=== PATIENT | male | born 1990 | race Caucasian/White ===

== ENCOUNTER 2019-07-31 11:53 | Emergency (ER) | payer SELFPAY ==
[~2019-07-31] VITALS: Ht 177.8 cm; Wt 81.6 kg
[2019-07-31 12:17] VITALS: BP 154/83
--- NOTE | 2019-07-31 12:55 | PHYS DOC ---
Past Medical History Past Medical History: No Pertinent History (DINORA CRUZ APRN) Past Surgical History: No Surgical History (DINORA CRUZ APRN) Alcohol Use: None Drug Use: None (DINORA CRUZ APRN) Adult General Chief Complaint Chief Complaint: DENTAL PROBLEM [facility] HPI Patient is a 29 year old male who presents with toothache has been ongoing for 2 months. He states she's been ongoing [employer] [facility] dental school but does not want to that yet due to financial concerns. Denies fever, denies nausea, denies any other symptoms. Complete ROS were reviewed and found to be within normal limits, except as documented in the HPI (DINORA CRUZ APRN) Allergies Allergies Allergies Coded Allergies Type Severity Reaction Last Updated Verified No Known Drug Allergies 07/31/19 No (CARINA FLORES MD) Physical Exam Physical Exam Constitutional: Well developed, well nourished, no acute distress, non-toxic appearance. [] HENT: Normocephalic, atraumatic, bilateral external ears normal, oropharynx moist, no oral exudates, nose normal. Tooth # 13 has cavity. Eyes: PERRLA, EOMI, conjunctiva normal, no discharge. [] Neck: Normal range of motion, no tenderness, supple Neurologic: Alert and oriented X 3, normal motor function, normal sensory function, no focal deficits noted. [] Psychologic: Affect normal, judgement normal, mood normal. [] (DINORA CRUZ APRN) Current Patient Data Vital Signs Vital Signs Date Time Temp Pulse Resp B/P (MAP) Pulse Ox O2 Delivery O2 Flow Rate FiO2 07/31/19 12:17 97.7 94 16 154/83 (106) 98 Room Air 97.7 (CARINA FLORES MD) EKG EKG [] (DINORA CRUZ APRN) Radiology/Procedures Radiology/Procedures [] (DINORA CRUZ APRN) Course & Med Decision Making Course & Med Decision Making Pertinent Labs and Imaging studies reviewed. (See chart for details) Discussed with patient the need to follow up with Dentist. A medical screening exam was performed on this patient and the patient does not appear to be having a medical emergency. Her symptoms are not of sufficient severity and within reasonable medical probability it is unlikely the absence of immediate medical attention would result in placing the health of the individual (or, with respect to a woman, the health of the woman or her unborn child) in serious jeopardy, serious impairment to bodily functions, or serious dysfunction of any bodily organ or part. If , the patient is not in labor (DINORA CRUZ APRN) Course & Med Decision Making Staff Physician Addendum: I was working in the ER during the course of this patient's visit. I was available for consultation as needed, but I was not directly involved in the care of this patient. (CARINA FLORES MD) Dragon Disclaimer Dragon Disclaimer This electronic medical record was generated, in whole or in part, using a voice recognition dictation system. (DINORA CRUZ APRN) Departure Departure Impression: Primary Impression: Pain, dental Additional Impression: Encounter for medical screening examination Referrals: NO PCP (PCP) Patient Instructions: Dental Pain Additional Instructions: Thank you for visiting [facility]. We appreciate you trusting us with your care. If any additional problems come up don't hesitate to return to visit us. Please follow up with your primary care provider so they can plan additional care if needed and know about the problem that you had. If symptoms worsen come back to the Emergency Department. Any concerning symptoms that start such as chest pain, shortness of air, weakness or numbness on one side of the body, running high fevers or any other concerning symptoms return to the ER. Problem Qualifiers DINORA CRUZ APRN Jul 31, 2019 12:55 CARINA FLORES MD Aug 01, 2019 07:43
== END 2019-07-31 19:17 | disposition home or self-care (01) ==
LOC: ER 11:53
DX: K08.89 Other specified disorders of teeth and supporting structures (principal); K02.9 Dental caries, unspecified
CPT/HCPCS: 99281